=== PATIENT | male | born 1990 | race American Indian/Alaskan Native ===

== ENCOUNTER 2017-12-18 02:50 | Emergency (ER) | payer OTHER ==
--- NOTE | 2017-12-18 04:23 | XRay Report ---
FINAL REPORT EXAM: XR FINGER(S) 2+V RT HISTORY: trauma, pain, deformity TECHNIQUE: Three views of the right middle finger were obtained. FINDINGS: There is a soft tissue deformity overlying the tuft of the distal phalanx. There is no evidence of fracture or radiopaque foreign body. The distal interphalangeal joint appears intact. IMPRESSION: Soft tissue deformity overlying the tuft of the distal phalanx. No evidence of fracture.
[2017-12-18 07:19] VITALS: BP 140/92
[2017-12-18] MEDS ORDERED: BOOSTRIX IM ONE (07:52)
[2017-12-18] MEDS ORDERED: TORADOL IM ONE (07:52)
[2017-12-18] MEDS ORDERED: NORCO 5/325 PO ONE (07:53)
--- NOTE | 2017-12-18 08:09 | Emergency Department Report ---
ED Extremity Problem HPI - General Chief complaint: Wound/Laceration Stated complaint: RT HAND FINGER LAC Time Seen by Provider: 12/18/17 07:36 Source: patient Mode of arrival: Ambulatory Limitations: No Limitations - History of Present Illness Initial comments: Patient reports machine at worked dropped down and cut the skin on the distal tip of his right middle finger today Severity scale (0 -10): 0 - Related Data Previous Rx's Medication Instructions Recorded Last Taken Type HYDROcodone/APAP 5-325 [[place] 1 each PO Q6HR PRN #20 tablet 06/05/14 Unknown Rx 5-325 mg TAB] Ibuprofen [Motrin] 600 mg PO Q8H PRN #40 tablet 06/05/14 Unknown Rx Penicillin Vk [Veetids TAB] 500 mg PO QID #40 tablet 06/05/14 Unknown Rx Ibuprofen [Motrin] 600 mg PO Q6H PRN #24 tablet 12/18/17 Unknown Rx Sulfamethoxazole/Trimethoprim 1 each PO BID #14 tablet 12/18/17 Unknown Rx [Bactrim DS TAB] Allergies Allergy/AdvReac Type Severity Reaction Status Date / Time No Known Allergies Allergy Unverified 06/05/14 02:05 ED Review of Systems ROS: Stated complaint: RT HAND FINGER LAC Other details as noted in HPI Other: GENERAL: No weight change, fatigue, weakness, fever, chills, or night sweats SKIN: No changes in skin or hair, no itching, no rashes, no jaundice HEAD: No trauma, headache, or visual changes EYES: No blurriness, tearing, itching, acute visual loss, conjunctival discoloration, or scleral icterus EARS: No hearing loss, tinnitus, vertigo, or earache NOSE: No rhinorrhea, stuffiness, sneezing, itching, or epistaxis MOUTH: No bleeding gums, hoarseness, sore throat, or swelling CARDIAC: No new murmur, chest pain, palpitations, dyspnea on exertion, orthopnea , PND, or edema RESPIRATORY: No shortness of breath, wheeze, cough, sputum production, hemoptysis, pneumonia, asthma, bronchitis, or emphysema GI: No change in appetite, nausea, vomiting, dysphagia, change in bowel frequency, diarrhea, constipation, bleeding, hematemesis, melena, hematochezia, or abdominal pain URINARY: No frequency, urgency, polyuria, dysuria, hematuria, or incontinence MUSCULOSKELETAL: Right middle finger distal injury NEUROLOGIC: No loss of sensation, numbness, tingling, tremors, weakness, paralysis, seizures HEMATOLOGIC: No anemia, easy bruising, bleeding, petechiae, or purpura ENDOCRINE: No hot or cold intolerance, sweating, polyuria, polydipsia or, polyphagia no thyroid problems PSYCHIATRIC: No change in mood, no anxiety, no depression ED Past Medical Hx - Past Medical History Previous Medical History?: No - Surgical History Past Surgical History?: No - Social History Smoking Status: Current Every Day Smoker Substance Use Type: None - Medications Home Medications: Home Medications Medication Instructions Recorded Confirmed Last Taken Type HYDROcodone/APAP 5-325 [[place] 1 each PO Q6HR PRN #20 tablet 06/05/14 Unknown Rx 5-325 mg TAB] Ibuprofen [Motrin] 600 mg PO Q8H PRN #40 tablet 06/05/14 Unknown Rx Penicillin Vk [Veetids TAB] 500 mg PO QID #40 tablet 06/05/14 Unknown Rx Ibuprofen [Motrin] 600 mg PO Q6H PRN #24 tablet 12/18/17 Unknown Rx Sulfamethoxazole/Trimethoprim 1 each PO BID #14 tablet 12/18/17 Unknown Rx [Bactrim DS TAB] ED Physical Exam - General Limitations: No Limitations - Other Other exam information: GENERAL: Patient in no acute distress HEAD: Normocephalic, atraumatic EYES: PERRLA, EOM intact, no scleral icterus, visual rangel and acuity wnl NOSE: No tenderness, discharge, sinus tenderness MOUTH: No erythema, bleeding, exudate HEART: Regular rate and rhythm, no murmur, S1-S2 are auscultated, pulses are symmetric LUNGS: bilateral breath sounds. No wheezing, rales, rhonchi ABDOMEN: Normal bowel sounds, no tenderness, no rebound, no guarding, no masses , no CVA tenderness MUSCULOSKELETAL: Normal joint range of motion, no redness, no swelling, no tenderness NEUROLOGIC: GCS 15, Alert and Oriented x3, Cranial nerves intact, normal sensation, normal strength, normal gait, no cerebellar deficit PSYCHIATRIC: No homicidal or suicidal ideation, no anxiety, no depression, no hallucinations SKIN: Right middle finger distal phalanx amputation of soft tissues ED Course Vital Signs 12/18/17 12/18/17 12/18/17 02:55 06:35 07:16 Temperature 98.0 F 98.1 F Pulse Rate 78 62 Respiratory 16 16 Rate Blood Pressure 158/88 140/92 Blood Pressure 136/81 [Left] O2 Sat by Pulse 99 99 98 Oximetry 12/18/17 12/18/17 12/18/17 07:18 08:00 08:46 Temperature 98.2 F Pulse Rate Respiratory Rate Blood Pressure 110/68 140/92 Blood Pressure [Left] O2 Sat by Pulse 99 97 Oximetry 12/18/17 09:01 Temperature Pulse Rate Respiratory 20 Rate Blood Pressure Blood Pressure [Left] O2 Sat by Pulse Oximetry ED Medical Decision Making - Radiology Data Radiology results: report reviewed - Medical Decision Making At 0800 Dr Lopez hand surgery at [place] updated. Recommends call ortho suction operator at [facility]. Patient likely needs a revision amputation. Recommends if ortho unable to perform the procedure, ortho should call her and explain the reason why. At 0806 Dr Ji ortho [facility] updated. Recommends gauze dressing. Recommends discharge with outpatient follow up. Bactrim po ok for antibiotics. Patient comfortable. Updated with results. Plan discharge with outpatient follow up. Patient agrees with plan and will return if symptoms worsen. Critical care attestation.: If time is entered above; I have spent that time in minutes in the direct care of this critically ill patient, excluding procedure time. ED Disposition Clinical Impression: Fingertip amputation Qualifiers: Encounter type: initial encounter Qualified Code(s): S68.129A - Partial traumatic metacarpophalangeal amputation of unspecified finger, initial encounter Disposition: DC-01 TO HOME OR SELFCARE Is pt being admited?: No Condition: Stable Instructions: Finger Amputation (ED) Prescriptions: Ibuprofen [Motrin] 600 mg PO Q6H PRN #24 tablet PRN Reason: Pain Sulfamethoxazole/Trimethoprim [Bactrim DS TAB] 1 each PO BID #14 tablet Referrals: PRIMARY CAREMD [Primary Care Provider] - 2-3 Days JAKE JI MD [Staff Physician] - 24 Hours Forms: Work/School Release Form(ED) Time of Disposition: 08:20
[2017-12-18] MEDS ORDERED: BACTRIM DS PO ONE (08:15)
== END 2017-12-18 09:11 | disposition home or self-care (01) ==
LOC: ED 02:50
DX: S68.112A Complete traumatic metacarpophalangeal amputation of right middle finger, initial encounter (principal); W45.8XXA Other foreign body or object entering through skin, initial encounter; Y93.89 Activity, other specified; Y92.69 Other specified industrial and construction area as the place of occurrence of the external cause; Y99.8 Other external cause status
CPT/HCPCS: 73140; 90471; 90715; 96372; 99283; J1885